=== PATIENT | male | born 1990 | race Caucasian/White ===

== ENCOUNTER 2017-07-17 19:49 | Emergency (ER) | payer SELFPAY ==
[2017-07-17] MEDS ORDERED: Multivitamin Inj 10 ML, Thiamine HCL 100 MG, Magnesium Sulfate 2 GM, Folic Acid 1 MG in... IV ONE (20:16)
--- NOTE | 2017-07-17 20:23 | ED Physician Chart ---
ED Chief Complaint/HPI - Patient Information Date Seen:: 07/25/17 Time Seen:: 19:53 Chief Complaint:: Pt is intoxicated with ethanol History of Present Illness:: Brought in by ambulance because pt was found to be intoxicated with ethanol in public. Pt otherwise appears to be comfortable without distress. H & P are limited because pt just wants to rest and is not cooperative. Pt denies any bodily pain or discomfort otherwise. Allergies:: Allergies Allergy/AdvReac Type Severity Reaction Status Date / Time No Known Allergies Allergy Verified 07/17/17 20:08 Vitals:: Vital Signs - 8 hr 07/17/17 20:00 Temp 97.8 F HR 94 RR 20 BP 104/49 O2 Sat % 96 Historian:: Patient Family MD/PCP:: unknown LMP:: N/A Review:: Nurse's Note Reviewed ED Review of Systems - Review of Systems General/Constitutional: Other (Pt does not cooperate for ROS.) ED Past Medical History - Past Medical History Past Medical History: Other (Pt does not cooperate to provide info on PMH.) Family History: Other (Pt does not cooperate to provide info on FHx.) Social History: Alcohol, Other (Pt does not cooperate to provide info on SHx.) Surgical History: other (Pt does not cooperate to provide info on Surgical Hx.) Medication: Reviewed Family Medical History - Family Member Mother History Unknown: Yes ED Physical Exam - Physical Examination General/Constitutional: Awake, Well-developed, well-nourished, Alert, No distress Other Gen/Cons comments:: Breathes comfortably and speaks clearly. Pt is not fully cooperative. Head: Atraumatic Eyes: Lids, conjuctiva normal, PERRL, EOMI Skin: No rash, No ecchymosis, No lymphadenopathy ENMT: External ears, nose nl, Nasal exam nl, Oropharynx nl Neck: Nontender, Full ROM w/o pain, No nuchal rigidity, No mass, No stridor Respiratory: Nl effort/Exclusion, Clear to Auscultation, No Wheeze/Rhonchi/Rales Cardio Vascular: RRR, No murmur, gallop, rubs, NL S1 S2 GI: No tenderness/rebounding/guarding, No organomegaly, Normal BS's, Nondistended Other GI comments:: Abdomen is soft. Extremities: No tenderness or effusion, Full ROM, No edema Neuro/Psych: Alert/oriented Other Neuro/Psych comments:: Responds to voice and tactile stimuli. Spontaneous movements noticed in all 4 extremities. Pt does not cooperate for full neurological exam. ED Labs/Radiology/EKG Results - Lab Results Results: Laboratory Tests 07/17/17 07/17/17 07/17/17 20:25 20:25 20:25 WBC 5.3 RBC 4.92 Hgb 14.4 Hct 42.6 MCV 86.5 MCH 29.2 MCHC Differential 33.7 RDW 12.3 Plt Count 224 MPV 7.9 Neutrophils % 63.7 Lymphocytes % 28.4 Monocytes % 6.8 Eosinophils % 0.5 Basophils % 0.6 PT 10.1 INR 0.97 PTT (Actin FS) 21.6 L Sodium 136 Potassium 3.5 Chloride 101 Carbon Dioxide 25.8 Anion Gap 12.7 BUN 12 Creatinine 0.8 Est GFR ( Amer) > 60.0 Est GFR (Non-Af Amer) > 60.0 BUN/Creatinine Ratio 15.0 Glucose 108 H POC Glucose Calcium 9.0 Total Bilirubin 0.6 AST 48 H ALT 30 Alkaline Phosphatase 74 Total Protein 7.9 Albumin 4.6 Globulin 3.3 Albumin/Globulin Ratio 1.4 Ethyl Alcohol 280 H 07/17/17 21:08 WBC RBC Hgb Hct MCV MCH MCHC Differential RDW Plt Count MPV Neutrophils % Lymphocytes % Monocytes % Eosinophils % Basophils % PT INR PTT (Actin FS) Sodium Potassium Chloride Carbon Dioxide Anion Gap BUN Creatinine Est GFR ( Amer) Est GFR (Non-Af Amer) BUN/Creatinine Ratio Glucose POC Glucose 102 Calcium Total Bilirubin AST ALT Alkaline Phosphatase Total Protein Albumin Globulin Albumin/Globulin Ratio Ethyl Alcohol Laboratory Last Values WBC 5.3 Th/cmm (4.8-10.8) 07/17/17 20:25 RBC 4.92 Mil/cmm (4.30-5.70) 07/17/17 20:25 Hgb 14.4 gm/dL (12-16) 07/17/17 20:25 Hct 42.6 % (41.0-60) 07/17/17 20:25 MCV 86.5 fl (80-99) 07/17/17 20:25 MCH 29.2 pg (26.0-30.0) 07/17/17 20:25 MCHC Differential 33.7 pg (28.0-36.0) 07/17/17 20:25 RDW 12.3 % (11.5-20.0) 07/17/17 20:25 Plt Count 224 Th/cmm (150-400) 07/17/17 20:25 MPV 7.9 fl 07/17/17 20:25 Neutrophils % 63.7 % (40.0-80.0) 07/17/17 20:25 Lymphocytes % 28.4 % (20.0-50.0) 07/17/17 20:25 Monocytes % 6.8 % (2.0-10.0) 07/17/17 20:25 Eosinophils % 0.5 % (0.0-5.0) 07/17/17 20:25 Basophils % 0.6 % (0.0-2.0) 07/17/17 20:25 PT 10.1 SECONDS (9.5-11.5) 07/17/17 20:25 INR 0.97 (0.5-1.4) 07/17/17 20:25 PTT (Actin FS) 21.6 SECONDS (26.0-38.0) L 07/17/17 20:25 Sodium 136 mEq/L (136-145) 07/17/17 20:25 Potassium 3.5 mEq/L (3.5-5.1) 07/17/17 20:25 Chloride 101 mEq/L (98-107) 07/17/17 20:25 Carbon Dioxide 25.8 mEq/L (21.0-31.0) 07/17/17 20:25 Anion Gap 12.7 (7.0-16.0) 07/17/17 20:25 BUN 12 mg/dL (7-25) 07/17/17 20:25 Creatinine 0.8 mg/dL (0.7-1.3) 07/17/17 20:25 Est GFR ( Amer) > 60.0 ml/min (>90) 07/17/17 20:25 Est GFR (Non-Af Amer) > 60.0 ml/min 07/17/17 20:25 BUN/Creatinine Ratio 15.0 07/17/17 20:25 Glucose 108 mg/dL (70-105) H 07/17/17 20:25 POC Glucose 102 MG/DL (70 - 105) 07/17/17 21:08 Calcium 9.0 mg/dL (8.6-10.3) 07/17/17 20:25 Total Bilirubin 0.6 mg/dL (0.3-1.0) 07/17/17 20:25 AST 48 U/L (13-39) H 07/17/17 20:25 ALT 30 U/L (7-52) 07/17/17 20:25 Alkaline Phosphatase 74 U/L (34-104) 07/17/17 20:25 Total Protein 7.9 gm/dL (6.0-8.3) 07/17/17 20:25 Albumin 4.6 gm/dL (4.2-5.5) 07/17/17 20:25 Globulin 3.3 gm/dL 07/17/17 20:25 Albumin/Globulin Ratio 1.4 (1.0-1.8) 07/17/17 20:25 Ethyl Alcohol 134 mg/dL (0-10) H 07/18/17 03:00 ED Septic Shock - . Is Septic Shock (SBP<90, OR Lactate>4 mmol\L) present?: No - <6hrs of presentation: Vital Signs: Vital Signs - 8 hr 07/17/17 20:00 Temp 97.8 F HR 94 RR 20 BP 104/49 O2 Sat % 96 ED Reassessment (Disposition) - Reassessment Reassessment:: 0100 Pt continues to improve and is more awake. No new complaint or findings. 0500 Pt is awake, alert and oriented x 3. Pt feels well without bodily pain. No N/V/D. No lightheadedness. Repeat ethanol level is 134. Pt ambulates steadily and swiftly without difficulty. Pt denies any illicit drug use. Lab findings have been reviewed with pt. Pt has been informed about health risks associated with ethanol use and has been advised to stop alcohol abuse. Pt has been encouraged to enroll in an alcohol rehab program. Pt acknowledges understanding. Pt requests to leave now and does not want further observation/ management in hospital. Aftercare instructions have been given. Reassessment Condition:: Improved - Diagnosis Diagnosis:: Ethanol intoxication, resolving and stable. - Aftercare/Follow up Instructions Aftercare/Follow-Up Instructions:: Refer to Discharge Instructions Notes:: Bedrest today. Pt has been advised to stop ethanol use. F/U with Dr. Pagan or PCP of pt's choice in one day for recheck with repeat lab study: CMP. Return to ER immediately if condition worsens or if any further questions/problems. Medication Prescribed:: None - Patient Disposition Discharge/Transfer:: Home Time:: 05:05 Condition at Disposition:: Stable, Improved
[2017-07-17 20:31] LABS: % BASOPHILS 0.6 % (0.0-2.0); % EOSINOPHILS 0.5 % (0.0-5.0); % LYMPHOCYTES 28.4 % (20.0-50.0); % MONOCYTES 6.8 % (2.0-10.0); % NEUTROPHILS 63.7 % (40.0-80.0); HEMATOCRIT 42.6 % (41.0-60); HEMOGLOBIN 14.4 gm/dL (12-16); MEAN CELL VOLUME 86.5 fl (80-99); MEAN CORPUSCULAR HEMOGLOBIN 29.2 pg (26.0-30.0); MEAN CORPUSCULAR HGB CONC 33.7 pg (28.0-36.0); MEAN PLATELET VOLUME 7.9 fl; NEUTROPHILE ABSOLUTE 3.4 Th/cmm (1.8-8.0); PLATELET COUNT 224 Th/cmm (150-400); RED BLOOD COUNT 4.92 Mil/cmm (4.30-5.70); RED CELL DISTRIBUTION WIDTH 12.3 % (11.5-20.0); WHITE BLOOD COUNT 5.3 Th/cmm (4.8-10.8)
[2017-07-17] MEDS ORDERED: Thiamine 100 mg/mL 2mL Vial ONE (20:32)
[2017-07-17] MEDS ORDERED: Multivitamin Inj 10 mL Vial IV ONE (20:33)
[2017-07-17] MEDS ORDERED: Magnesium Sulfate 1 gm/2 mL 2mL Vial IV ONE (20:33)
[2017-07-17 20:43] LABS: INR 0.97 (0.5-1.4); PROTHROMBIN TIME (TEST) 10.1 SECONDS (9.5-11.5)
[2017-07-17 20:47] LABS: ALB/GLOB RATIO 1.4 (1.0-1.8); ALKALINE PHOSPHATASE 74 U/L (34-104); ANION GAP 12.7 (7.0-16.0); BILIRUBIN,TOTAL 0.6 mg/dL (0.3-1.0); BUN - UREA NITROGEN 12 mg/dL (7-25); CARBON DIOXIDE 25.8 mEq/L (21.0-31.0); CHLORIDE 101 mEq/L (98-107); CREATININE - SERUM 0.8 mg/dL (0.7-1.3); GLUCOSE 108 mg/dL (70-105); POTASSIUM SERUM 3.5 mEq/L (3.5-5.1); SGOT 48 U/L (13-39); SGPT/ALT 30 U/L (7-52); SODIUM SERUM 136 mEq/L (136-145)
== END 2017-07-18 05:20 | disposition home or self-care (01) ==
LOC: ER 19:49
DX: F10.129 Alcohol abuse with intoxication, unspecified (principal)
CPT/HCPCS: 99285; 96365; 96366; 36415 ×2; 36416; 82948; 85025; 85610; 80320 ×2; 80053; J3411; J3475; J7030; X6598